=== PATIENT | male | born 1965 | race Two or more races ===

== ENCOUNTER 2018-02-21 07:54 | Day surgery (SDC) | payer OTHER ==
[2018-02-20 11:46] VITALS: BMI 28.0
[2018-02-21] MEDS ORDERED: PROPOFOL 20 ML ONE (09:06)
[2018-02-21] MEDS ORDERED: MIDAZOLAM HCL 2 MG/2 ML SINGLE DOSE VIAL ONE (09:06)
[2018-02-21] MEDS ORDERED: DEXAMETHASONE SOD PHOSPHATE 4 MG/1 ML VIAL ONE (09:18)
[2018-02-21] MEDS ORDERED: LIDOCAINE HCL/PF 2% SDV 5ML VIAL ONE (09:18)
[2018-02-21] MEDS ORDERED: ONDANSETRON 4 MG/2 ML VIAL ONE ×2 (09:18→10:18)
[2018-02-21] MEDS ORDERED: BUPIVACAINE HCL/PF 2.5 MG/ML - 30 ML VIAL IJ ONE (09:24)
[2018-02-21] MEDS ORDERED: ONDANSETRON 4 MG/2 ML VIAL IVPUSH PRN (09:48)
[2018-02-21] MEDS ORDERED: oxyCODONE HCL 5 MG TABLET PO PRN ×2 (09:48)
[2018-02-21] MEDS ORDERED: LACTATED RINGERS SOLUTION 1,000 ML IV SCH (10:00)
[2018-02-21 11:31] VITALS: BP 136/97; PULSE 70; TEMP 98
--- NOTE | 2018-02-21 20:53 | OP ---
DATE OF OPERATION: 02/21/2018 PREOPERATIVE DIAGNOSIS: Left small finger possible foreign body, possible neuroma, possible mass. POSTOPERATIVE DIAGNOSIS: Left small finger possible foreign body, and neuroma. OPERATIVE PROCEDURE: 1. Left small finger foreign body/mass excision. 2. Left small finger/hand digital neurolysis. SURGEON: Carmine Stroud M.D. ANESTHESIA: General. COMPLICATIONS: None. ESTIMATED BLOOD LOSS: Minimal. INDICATION FOR PROCEDURE: The patient is a 52-year-old male with the above findings indicated for operative treatment, risks, benefits, and alternatives were discussed with patient and informed consent was obtained. PROCEDURE: After proper identification of the patient and correct operative site, patient was brought to the operating room and placed supine on the operating room table, all bony prominences well padded. General anesthesia was provided by the anesthesiologist . Left upper extremity was prepped and draped in the usual sterile fashion. Well padded tourniquet was placed with a sterile prep. Esmarch bandage to exsanguinate the left upper extremity. Tourniquet inflated to 250 mmHg. The patient prior to the procedure had the exact location of the pain marked, this was just ulnar to the A1 bindu, going into the small finger. This was a very focal spot. The skin was ellipsed out of this area down to the level of the neurovascular bundle and the A1 bindu. This was sent for pathological evaluation. The tissue was , so it was not clear whether this definitely was a mass or a foreign body, but it was sent for pathological evaluation. The neurovascular bundle was identified, and there was significant large Pacinian corpuscles present and in 1 area it looked like there was either a neurofibroma or a neuroma of one of the branches of the nerve. This was dissected free of the main branch of the nerve and also sent for pathological evaluation. The digital nerve was neurolysed to insure no compression. The wound was irrigated with saline and repaired with a 5-0 Monocryl suture. Sterile dressings were placed. The patient was reversed from anesthesia and brought to the recovery room in stable condition. He tolerated the procedure well. CARMINE STROUD M.D. [id number]
--- NOTE | 2018-02-23 11:12 | PATH ---
Surgical Pathology Report Patient Name: ERIN FLORENCE Med. Rec. #: [id number] /Age/Gender: 1965 (Age: 52) / M Account: [id number] Location: [facility] Taken: 02/21/2018 Received: 02/21/2018 Reported: 02/23/2018 Physicians: Carmine Pinzon M.D. Specimen(s) Received LEFT HAND PAINFUL MASS, POSSIBLE FOREIGN BODY Clinical History Left hand foreign body Final Diagnosis LEFT HAND PAINFUL MASS, EXCISION: CONSISTENT WITH PACINIAN NEUROMA. NO FOREIGN BODY IDENTIFIED. COMMENT: SEGMENT OF SKIN SHOWING CLUSTERS OF PACINIAN CORPUSCLES WITH FOCAL HYPERTROPHY. THE LARGEST PACINIAN CORPUSCLE MEASURES MORE THAN 2.5 MM. Electronically Signed Cherie Major M.D. Gross Description Received in formalin, labeled "left hand painful mass, possible foreign body" is a 1 x 0.2 cm portion of skin excised to a depth of 0.6 cm. No foreign body/tissue is identified. Entirely submitted one cassette. AE/02/21/2018 ebram/02/21/2018
== END 2018-02-21 11:15 | disposition home or self-care (01) ==
LOC: FASU 07:54
PROVIDERS: ATTEND Orthopaedic Surgery Hand Surgery
PROC: 0JBK0ZX Excision of Left Hand Subcutaneous Tissue and Fascia, Open Approach, Diagnostic (ICD-10-PCS; 2018-02-21)
PROC: 01N40ZZ Release Ulnar Nerve, Open Approach (ICD-10-PCS; principal; 2018-02-21 09:30)
DX: D21.12 Benign neoplasm of connective and other soft tissue of left upper limb, including shoulder (principal); D36.12 Benign neoplasm of peripheral nerves and autonomic nervous system, upper limb, including shoulder
CPT/HCPCS: 88304-TC; 94760